=== PATIENT | female | born 2000 | race African-American/Black ===

== ENCOUNTER → 2021-11-17 06:58 | Outpatient (CLI) | payer OTHER, SELFPAY ==
--- NOTE | 2021-11-17 07:01 | DI.US.S_ITS ---
PROCEDURE: US OB >= 14 WEEKS FETUS INDICATIONS: 20 wk ANATOMY SCAN OUTSIDE/PRIOR DATING DATA: Last menstrual period (LMP): 06/07/2021. LMP-based estimated date of delivery (GUILLAUME): 03/14/2022. First dating scan (date and location): 11/17/2021 Estimated date of delivery (GUILLAUME) from first dating scan: 03/25/2022.. TECHNIQUE: Real-time scanning was performed of the fetus, with image documentation and biometric measurements. COMPARISON: None. FINDINGS: General: A single living intrauterine gestation is present. Presentation: Vertex Placenta: Placental position is posterior, without previa. Amniotic fluid index: 12.9 cm, normal range is 5-24 cm. Single deepest vertical pocket is 4.9 cm. heart rate: 149 beats per minute. Maternal cervical canal: 4.1 cm long. Normal lower limit is 2.5 cm. biometrics: Biparietal diameter: 5.1 cm, 21 weeks, 2 days Head circumference: 19.7 cm, 21 weeks, 6 days Abdominal circumference: 16.2 cm, 21 weeks, 2 days Femur length: 3.9 cm, 22 weeks, 4 days Clinically estimated gestational age: Not available Composite gestational age from present scan: 21 weeks, 5 days Estimated weight and percentile: 454 g, 3% Anatomic survey: Neuro: Ventricles are non-dilated at less than 10 mm. Cisterna magna is normal at 3-11 mm. Cerebellum is normal in size and morphology. Nuchal skin fold: Normal at less than 6 mm between 14-21 weeks gestational age. Face: Nose and lips, facial profile are normal. Spine: No evidence for spina bifida. Heart: 4-chambered heart is present, with normal ventricular outflow tracts. Diaphragm: Diaphragm is intact. Stomach: Left-sided stomach is present. Kidneys: No hydronephrosis. Normal is less than 5 mm in 2nd trimester, less than 7 mm in 3rd trimester. Cord: 3-vessel cord has orthotopic insertion. Bladder: Normal in size. Extremities: All 4 extremities identified. IMPRESSION: 1. Single live intrauterine with fetus in vertex presentation. heart rate is 149 beats per minute. Normal amount of amniotic fluid. Estimated weight is at 3%. 2. Normal anatomic survey. We strive to produce accurate, complete, and clear reports of imaging services. To assist us in improving patient care, this report was composed using standard report templates and voice recognition software. Therefore, it may contain abnormal punctuation, insertions and/or omissions. Occasional wrong-word or sound-alike substitutions may occur. Though we review the report and make efforts to correct it, we do recommend that the report be read carefully in proper context to recognize any text inaccuracies. Dictated by: Vijay Patterson M.D. on 11/17/2021 at 8:13 Approved by: Vijay Patterson M.D. on 11/17/2021 at 8:37
== END ==
PROVIDERS: Referring Provider Obstetrics & Gynecology; Visit Provider Obstetrics & Gynecology
DX: Z34.82 Encounter for supervision of other normal pregnancy, second trimester (principal); Z3A.21 21 weeks gestation of pregnancy
CPT/HCPCS: 76811

== ENCOUNTER → 2021-12-17 14:22 | Outpatient (CLI) | payer OTHER, SELFPAY ==
[2021-12-17 16:29] LABS: Hematocrit 30.5 % (36-46); Hemoglobin 10.2 g/dL (12.0-16.0)
[2021-12-17 16:48] LABS: GTT (PREG) 1 Hour PP 50gm Dose 150 mg/dL (76-139)
== END ==
PROVIDERS: Referring Provider Obstetrics & Gynecology; Visit Provider Obstetrics & Gynecology
DX: Z34.82 Encounter for supervision of other normal pregnancy, second trimester (principal)
CPT/HCPCS: 36415; 82950; 85014; 85018

== ENCOUNTER → 2021-12-30 06:56 | Outpatient (CLI) | payer OTHER, SELFPAY ==
[2021-12-30 09:19] LABS: Glucose 1 Hour Gest 218 mg/dL (76-180)
[2021-12-30 09:24] LABS: Glucose Fasting Gestational 89 mg/dL (76-95)
[2021-12-30 10:24] LABS: Glucose Tol Interp,Gestational INTERPRETATION
[2021-12-30 10:46] LABS: Glucose 2 Hour Gest 140 mg/dL (76-155)
[2021-12-30 11:02] LABS: Glucose 3 Hour Gest 64 mg/dL (76-140)
== END ==
PROVIDERS: Referring Provider Obstetrics & Gynecology; Visit Provider Obstetrics & Gynecology
DX: O99.810 Abnormal glucose complicating pregnancy (principal)
CPT/HCPCS: 36415; 82951; 82952

== ENCOUNTER → 2022-01-07 12:51 | Outpatient (CLI) | payer OTHER, SELFPAY ==
--- NOTE | 2022-01-07 13:42 | DIAB.MNT ---
Initial Diabetes Medical Nutrition Therapy Assessment Name: Lynn Grady Date: 01/07/22 Time: 1-130p Dx: Abnormal Glucose in Provider: Brook GUILLAUME: 03/25/22 (reported and ultrasound) 29 weeks Lynn presents today for initial nutrition therapy visit regarding elevated OGTT. Screen was elevated at 150 mg/dL and 1hr OGTT elevated at 218 mg/dL. States her dad is a cook and he has provided some education on carbs vs protein foods. Endorses mostly carb foods for meals/snacks. No PMH of diabetes or glucose intolerance. Reports FH of DM with maternal aunt. Has questions about vegetables frozen, canned vs fresh Diet Recall: -10a: blueberry eggos x2, with 1TBS syrup and butter +/-eggs, +8oz milk 12p: 1c Pasta, white sauce, spinach OR chili ? can + chips x 10, +/- cran juice x 8oz OR PBJ premade sandwich 3-4p: salads or fruit cup 7p: steak, 1/2c potatoes, green beans OR 1c gumbo OR 1c tatertot casserole with green beans and 1/2c mashed potatoes +/- 8oz cran juice Beverages: water x 64oz, milk x 16oz, cran juice x 16oz Anthropometrics: Ht: 66 Wt: 173# last week at OB Weight history: prepre# Physical Activity: hiking <3mi once per week, basketball 1-2 x per month, 16 min yoga 4-7 days per week Medications: PNV +iron Pertinent Labs: 1 hr screen: 150. OGTT: 89, 218, 140, 64L high 1hr and low 3hr may indicate pancreas insufficiency. Past Medical History: (Last Updated 12/16/21 @ 20:38 by Alyson Soler) Acne inversa Chlamydia Herpes Migraines (~2005) Nutrition Rx: Plate Method Nutrition Diagnosis: - Excessive CHO intake r/t nutrition knowledge deficit and juice intake aeb pt report and diet recall - Inadequate protein intake r/t nutrition knowledge deficit aeb diet recall - Physical inactivity r/t knowledge deficit and <30min daily activity aeb pt report Intervention: This participant was very receptive. Provided appropriate educational handouts. Discussed the following topics: Completed intake assessment. Pathophysiology of abnormal blood sugars rationale for OGTT and screen Potential risk factors for blood sugar abnormalities in the future and ways to reduce risk Plate Method, impact of macronutrients on blood sugar, meal timing, pairing macronutrients Recommended servings for carbohydrates at meals and snacks Recommended protein during Differences between vegetables frozen, fresh, canned. Encouraged low sodium options for overall nutrition health. Brainstormed appropriate meal plan based on food preferences Role of physical activity and following guidelines for safety Created SMART goals for patient self-care and success. Goals: Walk 3 x per week 20-30 min Add protein to each meal Avoid juice Follow-up: EDUARD CAGLE follow-up in 2-3 weeks. Lynn was very amenable to recommendations. Denied any questions and would like to follow-up for accountability. Princess Del Angel RDN, CDCES Certified Diabetes Care and [employer] Emergency Dispatcher P: [phone] Thank you for this referral
== END ==
PROVIDERS: Referring Provider Obstetrics & Gynecology; Visit Provider Obstetrics & Gynecology
DX: O26.893 Other specified pregnancy related conditions, third trimester (principal); Z3A.29 29 weeks gestation of pregnancy; R73.9 Hyperglycemia, unspecified
CPT/HCPCS: 97802

== ENCOUNTER 2022-01-28 14:47 | Outpatient (CLI) | payer OTHER, SELFPAY | END 2022-01-28 16:25 | disposition home or self-care (01) | LOC: LABOR 15:04 → OB 02-01 15:13 | PROVIDERS: Referring Provider Obstetrics & Gynecology; Visit Provider Obstetrics & Gynecology | DX: Z34.83 Encounter for supervision of other normal pregnancy, third trimester (principal); Z3A.32 32 weeks gestation of pregnancy | CPT/HCPCS: 59025; G0378; G0379 ==

== ENCOUNTER 2022-02-11 08:58 | Outpatient (CLI) | payer OTHER, SELFPAY ==
--- NOTE | 2022-02-11 09:33 | P.TNLD_ITS ---
Visit Information Visit Information Date of evaluation: 02/11/22 Primary OB Provider: Jannette Doe Reason for Evaluation: Yes non-stress test Comments/Additional reasons for admission: This patient is a 22yo P0 at 35 weeks with a late transfer of care and unclear dating, presenting for NST out of concern for SGA with no symptoms or concerns. Vital Signs Vital Signs: 112/77, HR 82, afebrile [facility] Medical History (Updated 02/17/22 @ 10:29 by Tono Choudhury MD) Acne inversa Chlamydia Herpes Migraines (~2005) Family History (Updated 12/16/21 @ 20:39 by Alyson Soler) Mother No problems noted. Father Sarcoidosis of lung Grandmother No problems noted. Grandfather Family history unknown Grandmother Sarcoidosis of lung Grandfather Hypertension History of heart disease Social History marital status: number of children: 0 household members: spouse lives independently: Yes caregiver/support person: No housing: house pets and animals: No education level: college occupational status: employed current occupational exposures/hazards: No special aly needs: No seatbelt use: always do you feel safe at home: Yes second hand exposure: No alcohol intake: former substance use type: marijuana during the past year weight has: increased > 10 lbs well-balanced diet: daily or most days daily servings fruits/ve-4 caffeine: No Type(s) of exercise: walking, other and normal ROM and activity frequency: does not exercise duration: 30-45 minutes/day Evaluation Evaluation Baseline heart rate: 150 Variability: Moderate (11-25) monitor accelerations: Present Monitor Decelerations: Absent Category of Tracing: Reactive Status: Category l Diagnosis, Plan/Disposition Plan/Disposition Plan: Home with routine precautions. OB Disposition: home
== END 2022-02-11 09:35 | disposition home or self-care (01) ==
LOC: LABOR 09:35 → OB 02-15 07:27
PROVIDERS: Referring Provider Obstetrics & Gynecology; Visit Provider Obstetrics & Gynecology
DX: O36.5930 Maternal care for other known or suspected poor fetal growth, third trimester, not applicable or unspecified (principal); Z3A.34 34 weeks gestation of pregnancy
CPT/HCPCS: 59025; G0378; G0379

== ENCOUNTER → 2022-02-25 17:38 | Outpatient (CLI) | payer OTHER, SELFPAY ==
[2022-02-26 15:18] LABS: Strep Grp B PCR NEG for Grp B Strep
== END ==
PROVIDERS: Visit Provider Obstetrics & Gynecology
DX: Z34.83 Encounter for supervision of other normal pregnancy, third trimester (principal); Z3A.36 36 weeks gestation of pregnancy
CPT/HCPCS: 87653

== ENCOUNTER 2022-03-03 12:35 | Outpatient (CLI) | payer OTHER, SELFPAY ==
--- NOTE | 2022-03-03 13:36 | PM.OBTRLD ---
Visit Information Visit Information Date of evaluation: 03/03/22 Primary OB Provider: Jannette Doe Reason for Evaluation: Yes non-stress test Comments/Additional reasons for admission: Patient a P0 @37+0 presenting for NST due to persistent FHR in 170s-180s in the office. Otherwise feeling well. Vital Signs Vital Signs: 118/80, p 102, afebrile [facility] Medical History (Updated 02/17/22 @ 10:29 by Tono Choudhury MD) Acne inversa Chlamydia Herpes Migraines (~2005) Family History (Updated 12/16/21 @ 20:39 by Alyson Soler) Mother No problems noted. Father Sarcoidosis of lung Grandmother No problems noted. Grandfather Family history unknown Grandmother Sarcoidosis of lung Grandfather Hypertension History of heart disease Social History marital status: number of children: 0 household members: spouse lives independently: Yes caregiver/support person: No housing: house pets and animals: No education level: college occupational status: employed current occupational exposures/hazards: No special aly needs: No seatbelt use: always do you feel safe at home: Yes second hand exposure: No alcohol intake: former substance use type: marijuana during the past year weight has: increased > 10 lbs well-balanced diet: daily or most days daily servings fruits/ve-4 caffeine: No Type(s) of exercise: walking, other and normal ROM and activity frequency: does not exercise duration: 30-45 minutes/day Evaluation Evaluation Baseline heart rate: 150 Variability: Average (6-10) monitor accelerations: Present Monitor Decelerations: Absent Category of Tracing: Reactive Status: Category l Diagnosis, Plan/Disposition Plan/Disposition Plan: home with routine precautions OB Disposition: home
== END 2022-03-03 13:10 | disposition home or self-care (01) ==
LOC: LABOR 13:08 → OB 03-04 08:51
PROVIDERS: Referring Provider Obstetrics & Gynecology; Visit Provider Obstetrics & Gynecology
DX: O36.8330 Maternal care for abnormalities of the fetal heart rate or rhythm, third trimester, not applicable or unspecified (principal); Z3A.37 37 weeks gestation of pregnancy
CPT/HCPCS: 59025; G0378; G0379

== ENCOUNTER 2022-03-20 00:32 | Outpatient (CLI) | payer OTHER, SELFPAY | END 2022-03-20 01:30 | disposition home or self-care (01) | LOC: LABOR 01:34 → OB 03-23 14:27 | PROVIDERS: PCP Obstetrics & Gynecology; Referring Provider Obstetrics & Gynecology; Visit Provider Obstetrics & Gynecology | DX: Z03.71 Encounter for suspected problem with amniotic cavity and membrane ruled out (principal); Z3A.39 39 weeks gestation of pregnancy | CPT/HCPCS: 59025; G0378; G0379 ==

== ENCOUNTER 2022-03-24 07:07 | Outpatient (CLI) | payer OTHER, SELFPAY | END 2022-03-24 07:56 | disposition home or self-care (01) | LOC: OB 03-25 11:35 | PROVIDERS: PCP Obstetrics & Gynecology; Referring Provider Obstetrics & Gynecology; Visit Provider Obstetrics & Gynecology | DX: Z03.71 Encounter for suspected problem with amniotic cavity and membrane ruled out (principal); O36.5930 Maternal care for other known or suspected poor fetal growth, third trimester, not applicable or unspecified; Z3A.39 39 weeks gestation of pregnancy | CPT/HCPCS: 59025; 84112; G0378; G0379 ==

== ENCOUNTER 2022-03-25 13:29 | Outpatient (CLI) | payer OTHER, SELFPAY ==
--- NOTE | 2022-03-26 09:20 | PM.OBTRLD ---
Visit Information Visit Information Date of evaluation: 03/25/22 Primary OB Provider: Damien Doe Reason for Evaluation: Yes rule out labor Comments/Additional reasons for admission: This patient is a 22yo P0 @40+1 presenting for evaluation for labor. Patient has had contractions for several weeks, increased mucus vs LOF, no VB. Good movement, no other symptoms. Vital Signs Vital Signs: 116/77, HR 97 PFSH Medical History Acne inversa Chlamydia Herpes Migraines (~2005) Family History Mother No problems noted. Father Sarcoidosis of lung Grandmother No problems noted. Grandfather Family history unknown Grandmother Sarcoidosis of lung Grandfather Hypertension History of heart disease Social History marital status: number of children: 0 household members: spouse lives independently: Yes caregiver/support person: No housing: house pets and animals: No education level: college occupational status: employed current occupational exposures/hazards: No special aly needs: No seatbelt use: always do you feel safe at home: Yes second hand exposure: No alcohol intake: former substance use type: marijuana during the past year weight has: increased > 10 lbs well-balanced diet: daily or most days daily servings fruits/ve-4 caffeine: No Type(s) of exercise: walking, other and normal ROM and activity frequency: does not exercise duration: 30-45 minutes/day Review of Systems Constitutional Constitutional: Reports system reviewed and no additional complaints, except as documented Evaluation Evaluation Baseline heart rate: 140 Variability: Average (6-10) monitor accelerations: Present Monitor Decelerations: Early and Late (x1) Contraction Frequency (minutes): 7 Category of Tracing: Reactive Status: Category l Cervical dilation (cm): 3 Cervical effacement (%): 90 station: -1 Non-invasive Membranes Rupture Test: negative Diagnosis, Plan/Disposition Plan/Disposition Plan: Patient ambulated x1.5 hours without cervical change, spaced contractions. Discussed theraputic rest vs. discharge, labor precautions. Discharged home in latent labor. OB Disposition: home
== END 2022-03-25 15:31 | disposition home or self-care (01) ==
LOC: LABOR 13:45 → OB 03-28 10:18
PROVIDERS: PCP Obstetrics & Gynecology; Referring Provider Obstetrics & Gynecology; Visit Provider Obstetrics & Gynecology
DX: O47.1 False labor at or after 37 completed weeks of gestation (principal); O48.0 Post-term pregnancy; Z3A.40 40 weeks gestation of pregnancy
CPT/HCPCS: 59025; 84112; G0378; G0379

== ENCOUNTER 2022-03-26 00:56 | Outpatient (CLI) | payer OTHER, SELFPAY ==
[2022-03-26] MEDS: MORPHINE 10 MG/ML INJ IM (02:45)
[2022-03-26] MEDS: hydrOXYzine 50 MG/ML INJ IM (02:46)
--- NOTE | 2022-03-26 09:25 | PM.OBTRLD ---
Visit Information Visit Information Date of evaluation: 03/26/22 Primary OB Provider: Jannette Doe Reason for Evaluation: Yes rule out labor Comments/Additional reasons for admission: Patient is a P0 @40+2 presenting for evaluation for labor, reporting contractions resumed q4 3 hours ago. No LOF or VB, good movement, no other symptoms. Vital Signs Vital Signs: 121/89, HR 90 PFSH Medical History Acne inversa Chlamydia Herpes Migraines (~2005) Family History Mother No problems noted. Father Sarcoidosis of lung Grandmother No problems noted. Grandfather Family history unknown Grandmother Sarcoidosis of lung Grandfather Hypertension History of heart disease Social History marital status: number of children: 0 household members: spouse lives independently: Yes caregiver/support person: No housing: house pets and animals: No education level: college occupational status: employed current occupational exposures/hazards: No special aly needs: No seatbelt use: always do you feel safe at home: Yes second hand exposure: No alcohol intake: former substance use type: marijuana during the past year weight has: increased > 10 lbs well-balanced diet: daily or most days daily servings fruits/ve-4 caffeine: No Type(s) of exercise: walking, other and normal ROM and activity frequency: does not exercise duration: 30-45 minutes/day Evaluation Evaluation Baseline heart rate: 150 Contraction Frequency (minutes): 7 Uterine Contraction Intensity: Moderate Category of Tracing: Reactive Status: Category l Cervical dilation (cm): 3 Cervical effacement (%): 90 station: -1 Diagnosis, Plan/Disposition Plan/Disposition Plan: Home after theraputic rest with morphine and vistaril, labor precautions discussed. OB Disposition: home
== END 2022-03-26 02:56 | disposition home or self-care (01) ==
LOC: OB 03-28 10:21
PROVIDERS: PCP Obstetrics & Gynecology; Referring Provider Obstetrics & Gynecology; Visit Provider Obstetrics & Gynecology
DX: O47.9 False labor, unspecified (principal); O48.0 Post-term pregnancy; Z3A.40 40 weeks gestation of pregnancy
CPT/HCPCS: 59025; 96372; G0378; G0379; J2270; J3410

== ENCOUNTER 2022-03-26 23:39 | Outpatient (CLI) | payer OTHER, SELFPAY ==
[2022-03-27] MEDS: MORPHINE 10 MG/ML INJ IM (00:40)
[2022-03-27] MEDS: hydrOXYzine 50 MG/ML INJ IM (00:41)
--- NOTE | 2022-03-27 03:42 | PM.OBTRLD ---
Visit Information Visit Information Date of evaluation: 03/25/22 Primary OB Provider: Jannette Doe Reason for Evaluation: Yes rule out labor Comments/Additional reasons for admission: This patient is a 22yo P0 @40+3 presenting for evaluation of labor. Contractions continue to be painful. No VB, no LOF, no other symptoms. Vital Signs Vital Signs: 130s-140s/90s, HR 110s PFSH Medical History Acne inversa Chlamydia Herpes Migraines (~2005) Family History Mother No problems noted. Father Sarcoidosis of lung Grandmother No problems noted. Grandfather Family history unknown Grandmother Sarcoidosis of lung Grandfather Hypertension History of heart disease Social History marital status: number of children: 0 household members: spouse lives independently: Yes caregiver/support person: No housing: house pets and animals: No education level: college occupational status: employed current occupational exposures/hazards: No special aly needs: No seatbelt use: always do you feel safe at home: Yes second hand exposure: No alcohol intake: former substance use type: marijuana during the past year weight has: increased > 10 lbs well-balanced diet: daily or most days daily servings fruits/ve-4 caffeine: No Type(s) of exercise: walking, other and normal ROM and activity frequency: does not exercise duration: 30-45 minutes/day Evaluation Evaluation Baseline heart rate: 130 Variability: Average (6-10) monitor accelerations: Present Monitor Decelerations: Absent Status: Category l Cervical dilation (cm): 4 Cervical effacement (%): 90 station: -1 Diagnosis, Plan/Disposition Plan/Disposition Plan: Patient has not made significant cervical change per nursing exams and evaluation, but on review after discharge is quite hypertensive. To be called in AM to return for repeat BPs and PIH labs. OB Disposition: home
== END 2022-03-27 01:18 | disposition home or self-care (01) ==
LOC: LABOR 03-27 00:25 → OB 03-28 10:21
PROVIDERS: PCP Obstetrics & Gynecology; Referring Provider Obstetrics & Gynecology; Visit Provider Obstetrics & Gynecology
DX: O47.1 False labor at or after 37 completed weeks of gestation (principal); O48.0 Post-term pregnancy; Z3A.40 40 weeks gestation of pregnancy
CPT/HCPCS: 59025; 59050; 96372; G0378; G0379; J2270; J3410

== ENCOUNTER 2022-03-27 05:09 | Inpatient (IN) | payer OTHER, SELFPAY ==
[2022-03-27 06:46] LABS: Basophils Absolute Auto 100 /uL (0-100); Basophils Percent Auto 0.4 % (0-2); Eosinophils Absolute Auto 0 /uL (0-450); Hemoglobin 10.9 g/dL (12.0-16.0); Lymphocytes Absolute Auto 1700 /uL (1100-4500); Lymphocytes Percent Auto 9.1 % (25-40); Mean Corpuscular HGB Conc 33.1 % (30-36); Mean Corpuscular Hemoglobin 27.6 PG (26-34); Mean Corpuscular Volume 83.3 fL (80-100); Monocytes Absolute Auto 1000 /uL (0-900); Monocytes Percent Auto 5.4 % (3-14); Neutrophils Absolute Auto 16100 /uL (1500-7000); Neutrophils Percent Auto 85.1 % (50-75); Red Blood Cell Count 3.96 X10^6/uL (4.0-5.2); Red Cell Distribution Width 15.4 % (11.6-14.8); White Blood Cell Count 18.9 X10^3/uL (4.5-11.0)
[2022-03-27 06:47] LABS: BUN Creatinine Ratio 17.5 (6-22); Blood Urea Nitrogen 11 mg/dL (7-17); Estimated Glomerular Filt Rate > 60 mL/min (>60); Uric Acid 5.6 mg/dL (2.5-6.2)
[2022-03-27 06:48] LABS: Add Manual Diff / Slide Review SLIDE REVIEW
--- NOTE | 2022-03-27 06:55 | P.HPOB_ITS ---
OB HPI Date/Time Date of admission: 03/27/22 Date Patient Seen: 03/27/22 Time Patient Seen: 05:00 History of Present Condition Chief complaint: obs GUILLAUME Calculator Estimated Delivery Date Method Current WG Current Estimate 03/24/22 Ultrasound #1 40w 3d Other Estimates 03/14/22 LMP (Uncertain) 41w 6d 03/25/22 Ultrasound #2 40w 2d Estimated Gestational Age (weeks): 40 : 2 Para: 0 Narrative: This patient is a 22yo @40+3 presenting for the 4th time in 36 hours for a labor evaluation. The patient has made slight change to 4cm, and reports no LOF or VB. Reports good movement, no other symptoms or concerns. was complicated by late transfer of care with incomplete records, and initial concern for IUGR was resolved with accurate early US-based GUILLAUME. History of HSV on Valtrex, no other obstetrical complications or relevant medical, surgical, or family history. care: good care Dating criteria OB: LMP confirmed by 2nd trimester US Ultrasounds: normal mid trimester US Obstetrical complications: none Medical complications OB: none Narrative: Prior records include labs and confirmed GUILLAUME, but are incomplete. External History : 2 Para: 0 Estimated Date of Delivery: 03/24/22 Indications Indication for induction OB: maternal discomfort Preadmission Labs Last OB Lab Results: Blood Type B Positive 03/27/22 05:54 03/27/22 Antibody Screen Negative 03/27/22 05:54 03/27/22 Hematocrit 33.0 % (36-46) L 03/27/22 05:54 03/27/22 Hemoglobin 10.9 g/dL (12.0-16.0) L 03/27/22 05:54 03/27/22 Glucose 1 Hour 150 mg/dL (76-139) H 12/17/21 15:29 12/17/21 Group B Streptococcus (PCR) Neg for grp b strep 02/25/22 17:38 02/25/22 Glucose Tolerance Testing: Fasting (89), 1 hr (218), 2 hr (140) and 3 hr (64) -: Chlamydia screen: negative, Gonorrhea screen: negative and Urine: negative External Labs -: Urine: negative Prior (ies) Past Pregnancies Del. Date GA/Weeks Labor Lgth Wt Sex Route Outcome Anesthesia Place Delv Breastfeed Preg Comp Name 10/23/16 10 elective elective Delivery Date: 10/23/16 Last Updated by: Cyndy Barillas R.N. Medication termination, no complications. Evaluation Evaluation Baseline heart rate: 140 Variability: Moderate (11-25) monitor accelerations: Present Monitor Decelerations: Early Contraction Frequency (minutes): 4 Category of Tracing: Reactive Status: Category l Dilation (cm): 4 Effacement (%): 90 Dilation: 3-4 cm Effacement: >/=80% station: -1 Position of cervix: mid Consistency: medium Jensen score: 9 [facility] Medical History Acne inversa Chlamydia Herpes Migraines (~2005) Family History Mother No problems noted. Father Sarcoidosis of lung Grandmother No problems noted. Grandfather Family history unknown Grandmother Sarcoidosis of lung Grandfather Hypertension History of heart disease Social History marital status: number of children: 0 household members: spouse lives independently: Yes caregiver/support person: No housing: house pets and animals: No education level: college occupational status: employed current occupational exposures/hazards: No special aly needs: No seatbelt use: always do you feel safe at home: Yes Smoking Status: Never smoker second hand exposure: No alcohol intake: former substance use type: marijuana during the past year weight has: increased > 10 lbs well-balanced diet: daily or most days daily servings fruits/ve-4 caffeine: No Type(s) of exercise: walking, other and normal ROM and activity frequency: does not exercise duration: 30-45 minutes/day Meds Home Medications and Allergies Home Medications Medication Instructions Recorded Confirmed Type prenat.vits,jan,vaf-aict-lxftv 1 tab PO DAILY 11/17/21 03/27/22 History valacyclovir 500 mg tablet 500 mg PO DAILY #30 tab 02/25/22 03/27/22 Rx (Valtrex) Allergies Allergy/AdvReac Type Severity Reaction Status Date / Time Penicillins Allergy Intermediate Difficulty Verified 03/22/22 11:12 Breathing Review of Systems Constitutional Constitutional: Reports system reviewed and no additional complaints, except as documented Cardiovascular Cardiovascular: Reports system reviewed and no additional complaints, except as documented Respiratory Respiratory: Reports system reviewed and no additional complaints, except as documented Gastrointestinal Gastrointestinal: Reports system reviewed and no additional complaints, except as documented Genitourinary Genitourinary: Reports system reviewed and no additional complaints, except as documented Musculoskeletal Musculoskeletal: Reports system reviewed and no additional complaints, except as documented Neurologic Neurologic: Reports system reviewed and no additional complaints, except as documented Objective Labs Result Diagrams: 03/27/22 05:54 03/27/22 05:54 Labs: Laboratory Results - last 24 hr 03/27/22 05:54 WBC 18.9 H RBC 3.96 L Hgb 10.9 L Hct 33.0 L MCV 83.3 MCH 27.6 MCHC 33.1 RDW 15.4 H Assessment and Plan Assessment and Plan Assessment and Plan narrative: This patient is admitted in early labor. We discussed epidural, AROM, and expectant management with augmentation with pitocin if necessary. EFW 7#4. Anticipate - cEFM, toco - GBS negative - Epidural then AROM to augment early labor in the setting of maternal discomfort - Discussed possible pitocin per protocol
[2022-03-27 06:58] LABS: Aspartate Aminotransferase 36 IU/L (14-36)
[2022-03-27] MEDS: LACTATED RINGERS 1,000 ML 100 ML IV ×2 (07:00→14:52)
[2022-03-27] MEDS: fentaNYL 100 MCG/2 ML INJ (07:45)
[2022-03-27] MEDS: FENT 2MCG/ML BUPIV 0.125% EPI 200 MCG/100 ML PLAST..BAG 12 MCG EPIDURAL ×2 (07:56→15:09)
[2022-03-27 07:58] LABS: COVID19 -Nasal RAPID Negative (Negative)
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
[2022-03-27 08:13] LABS: Platelet Estimate Adequate on smear
[2022-03-27 08:14] LABS: RBC Morphology Normal Morphology
--- NOTE | 2022-03-27 11:57 | PM.OBPNLAB ---
Date/Time Date Patient Seen: 03/27/22 Time Patient Seen: 12:00 Pain Control Pain control: epidural Pelvic Exam Dilation (cm): 6 Effacement (%): 100 station: 0 Amniotic membrane status: Ruptured (attempted AROM for light mec) Contractions Contractions on admission: regular Contraction frequency (min): 3 Status status: Category l Heart Rate Baseline: 145 Monitor Accelerations: Present Monitor Decelerations: Absent Monitor Variability: Moderate Assessment and Plan Assessment: active labor Plan: continuous present management Comments: Patient making spontaneous progress after epidural. Discussed that pressure is normal and cannot be entirely removed with epidural. AROM attempted, success unclear and will monitor for leakage of fluid.
--- NOTE | 2022-03-27 14:45 | PM.OBPNLAB ---
Date/Time Date Patient Seen: 03/27/22 Time Patient Seen: 14:45 Pain Control Pain control: epidural Pelvic Exam Dilation (cm): 8 Effacement (%): 100 station: 0 Amniotic membrane status: Leaking (light mec) Contractions Contraction frequency (min): 5 Contraction pattern: Regular Status status: Category l Heart Rate Baseline: 150 Monitor Accelerations: Present Monitor Decelerations: Absent Monitor Variability: Moderate Assessment and Plan Assessment: active labor Plan: continuous present management Comments: Patient making slow but present change. Discussed low dose pitocin to bring contractions together, peanut ball positioning and nap.
--- NOTE | 2022-03-27 16:15 | PM.OBPNLAB ---
Date/Time Date Patient Seen: 03/27/22 Time Patient Seen: 16:15 Pain Control Pain control: epidural Comments: left hip window Pelvic Exam Dilation (cm): 9 Effacement (%): 100 station: 0 Amniotic membrane status: Leaking (light mec) Contractions Contraction frequency (min): 5 Contraction pattern: Regular Status status: Category l Heart Rate Baseline: 145 Monitor Accelerations: Present Monitor Decelerations: Early Monitor Variability: Moderate Assessment and Plan Assessment: active labor Plan: continuous present management Comments: Patient for repositioning. Anticipate . Elevated BPs and pulse in setting of significant anxiety about feeling pressure with contractions, repeating PIH labs and coaching provided. No PIH symptoms endorsed.
[2022-03-27 16:27] LABS: Creatinine Urine Random 100.8 mg/dL; Protein (Total) Urine Random 24 mg/dL (0-12); Protein Creatinine Ratio Urine 0.23 GRAM/24H
[2022-03-27 16:36] LABS: Add Manual Diff / Slide Review NO; Basophils Absolute Auto 100 /uL (0-100); Basophils Percent Auto 0.5 % (0-2); Eosinophils Absolute Auto 0 /uL (0-450); Hematocrit 31.7 % (36-46); Hemoglobin 10.5 g/dL (12.0-16.0); Lymphocytes Absolute Auto 1500 /uL (1100-4500); Lymphocytes Percent Auto 8.5 % (25-40); Mean Corpuscular HGB Conc 33.2 % (30-36); Mean Corpuscular Hemoglobin 27.4 PG (26-34); Mean Corpuscular Volume 82.3 fL (80-100); Monocytes Absolute Auto 1200 /uL (0-900); Monocytes Percent Auto 6.7 % (3-14); Neutrophils Absolute Auto 14500 /uL (1500-7000); Neutrophils Percent Auto 84.3 % (50-75); Platelet Count 336 X10^3/uL (150-400); Red Blood Cell Count 3.85 X10^6/uL (4.0-5.2); Red Cell Distribution Width 15.1 % (11.6-14.8); White Blood Cell Count 17.2 X10^3/uL (4.5-11.0)
[2022-03-27 16:47] LABS: Alanine Aminotransferase 14 IU/L (<35); Albumin 3.7 g/dL (3.5-5.0); Alkaline Phosphatase 204 U/L (38-126); Aspartate Aminotransferase 24 IU/L (14-36); Bilirubin Total 0.9 mg/dL (0.2-1.3); Blood Urea Nitrogen 9 mg/dL (7-17); Calcium 8.8 mg/dL (8.4-10.2); Carbon Dioxide 24 mmol/L (22-32); Chloride 104 mmol/L (98-107); Estimated Glomerular Filt Rate > 60 mL/min (>60); Globulin 3.6 g/dL (1.7-4.1); Glucose 93 mg/dL (70-100); HEMOLYSIS < 15 (0-50); Potassium 3.9 mmol/L (3.4-5.1); Sodium 133 mmol/L (137-145); Total Protein 7.3 g/dL (6.3-8.2)
[2022-03-27] MEDS: OXYTOCIN PREMIX 30 UNIT/500 ML PLAST..BAG IV (17:00)
--- NOTE | 2022-03-27 18:44 | PM.OBPNLAB ---
Date/Time Date Patient Seen: 03/27/22 Time Patient Seen: 18:44 Pain Control Pain control: epidural Comments: Patient feeling pressure and having severe anxiety around this sensation. Pelvic Exam Dilation (cm): 10 Effacement (%): 100 station: +1 Amniotic membrane status: Leaking (light mec) Contractions Pitocin rate (mU/min): 2 Contraction frequency (min): 3 Contraction pattern: Regular Status status: Category l Heart Rate Baseline: 140 Monitor Accelerations: Absent Monitor Decelerations: Early Monitor Variability: Moderate Assessment and Plan Assessment: active labor Plan: continuous present management Comments: Revisited with patient and spouse that pressure is normal, discussed that we have requested epidural bolus from Dr. Burr. patient hypertensive but all muscles in arms clenched due to anxiety, no PIH symptoms and normal PIH labs. Encouraged to slow breathing.
[2022-03-27] MEDS: miSOPROStoL 200 MCG TABLET 800 MCG PR (21:11)
--- NOTE | 2022-03-27 21:24 | P.PCNOB_ITS ---
Labor & Delivery Delivery date: 03/27/22 Intrapartal Events: Extended Tachycardia, Acceleration and Deceleration Cervical ripening method: none Induction method: AROM Delivery augmentation: pitocin Delivery monitor: external FHT and external uterine Route of delivery: L&D Laceration Description: Perineal - 2nd Degree Delivery repair: vicryl Estimated blood loss (mL): 300 Anesthesia Type: Epidural Narrative: This patient presented in early labor. She was augmented with AROM for light mec, then pitocin for a protracted active phase. After a 1.5 hour second stage, she was delivered of a healthy baby girl, apgars 8+9, weight 6#9. There was no nuchal cord and the shoulders delivered with ease. Thick meconium was noted in the amniotic fluid at the time of delivery. A small second degree laceration was repaired with 3-0 vicryl in the usual fashion. The placenta delivered spontaneously and intact with a three vessel cord. Due to uterine atony after delivery, the patient was administered 800mcg rectal cytotec. There were no other intrapartum or immediate complications. [place] Baby 1: gender: Female Presentation: vertex Position: Left Occiput Anterior Placenta delivery description: Spontaneous Cord Vessel Description: 3 Vessels score (1 min): 8 score (5 min): 9 weight: 6 lb 9 oz Plan for aftercare: Routine care
[2022-03-27] MEDS: IBUPROFEN 600 MG TABLET PO (23:17)
[2022-03-27] MEDS: ACETAMINOPHEN 325 MG TABLET 650 MG PO (23:18)
[2022-03-28] MEDS: LANOLIN OINT 7 GM 1 APPLIC TOP (04:09)
[2022-03-28] MEDS: IBUPROFEN 600 MG TABLET PO ×2 (04:10→11:26)
[2022-03-28] MEDS: OXYCODONE IR 5 MG TABLET PO ×2 (04:11→16:00)
[2022-03-28 08:43] LABS: Hematocrit 28.3 % (36-46); Hemoglobin 9.3 g/dL (12.0-16.0)
[2022-03-28] MEDS: ACETAMINOPHEN 325 MG TABLET 650 MG PO (11:27)
[2022-03-28] MEDS: valACYclovir 500 MG TABLET PO (11:30)
--- NOTE | 2022-03-28 12:10 | P.DS_ITS ---
Discharge Providers Provider Date of admission: 03/27/22 05:09 Discharge Date: 03/28/22 Primary care physician: Jannette Doe MD Consults: 03/28/22 21:23 Consult to Dependency Program Director Routine Comment: Discharge provider: Jannette Doe MD Summary Hospital Course Date Patient Seen: 03/28/22 Time Patient Seen: 10:30 Diagnoses: labor Hospital Course: This patient was admitted in early labor at 40 weeks gestation. Due to maternal discomfort, she was given an epidural and augmented with AROM and pitocin. She progressed to fully dilated and was delivered of a healthy baby girl after a 1.5 hour second stage. A small 2nd degree perineal laceration was repaired in the usual fashion. Her course was uncomplicated, and she was discharged on PPD#1 with routine precautions. Peripartum Data Infant Delivery Method: Natural Vaginal Laceration Description: Perineal - 2nd Degree Procedures: vaginal delivery complications: none 1: Gender: Female Disposition of : home Status at Discharge Cognitive/behavioral status at discharge: oriented Functional status at discharge: independent ambulation Overall status at discharge: patient is progressing back to baseline Time Spent with Patient Time attestation: Total time spent providing and/or coordinating discharge services: Objective Labs Result Diagrams: 03/28/22 08:16 03/27/22 16:29 Labs: Laboratory Results - last 24 hr 03/27/22 03/27/22 03/27/22 15:45 16:29 16:29 WBC 17.2 H RBC 3.85 L Hgb 10.5 L Hct 31.7 L MCV 82.3 MCH 27.4 MCHC 33.2 RDW 15.1 H Plt Count 336 Neut % (Auto) 84.3 H Lymph % (Auto) 8.5 L [place] % (Auto) 6.7 Eos % (Auto) 0.0 L Baso % (Auto) 0.5 Neut # (Auto) 09380 H Lymph # (Auto) 1500 [place] # (Auto) 1200 H Eos # (Auto) 0 Baso # (Auto) 100 Sodium 133 L Potassium 3.9 Chloride 104 Carbon Dioxide 24 BUN 9 Creatinine 0.75 Estimated GFR > 60 BUN/Creatinine Ratio 12.0 Glucose 93 Calcium 8.8 Total Bilirubin 0.9 AST 24 ALT 14 Alkaline Phosphatase 204 H Total Protein 7.3 Albumin 3.7 Globulin 3.6 Albumin/Globulin Ratio 1.0 U Random Total Protein 24 H Urine Creatinine 100.8 Protein/Creatinin Ratio 0.23 03/28/22 08:16 WBC RBC Hgb 9.3 L Hct 28.3 L MCV MCH MCHC RDW Plt Count Neut % (Auto) Lymph % (Auto) [place] % (Auto) Eos % (Auto) Baso % (Auto) Neut # (Auto) Lymph # (Auto) [place] # (Auto) Eos # (Auto) Baso # (Auto) Sodium Potassium Chloride Carbon Dioxide BUN Creatinine Estimated GFR BUN/Creatinine Ratio Glucose Calcium Total Bilirubin AST ALT Alkaline Phosphatase Total Protein Albumin Globulin Albumin/Globulin Ratio U Random Total Protein Urine Creatinine Protein/Creatinin Ratio Exam Vital Signs (past 8 hours): 121/83, HR 110 Narrative Exam Narrative: Resting in bed. Patient reports ambulating, mild lochia, voiding, passing flatus, tolerateing PO, no PIH symptoms. Const General: cooperative, healthy appearing, comfortable and well groomed Resp Effort & Inspection: normal respiratory effort Auscultation: clear to auscultation bilaterally Cardio Rate: regular rate Rhythm: regular rhythm GI Palpation: soft and No tender Other: fundus firm, well below u Discharge Plan Discharge Plan Patient Disposition: Home Discharge orders & Medications Prescriptions: Continued valacyclovir [Valtrex] 500 mg tablet 500 mg PO DAILY Qty: 30 2RF Rx Instructions: Take once daily until 6 weeks . prenat.vits,jan,xup-uwob-wuobl Tablet 1 tab PO DAILY 0RF Follow up/Referrals: Jannette Doe MD [Primary Care Provider] - 6 Weeks ( check) Diet/Activity/Treatments Diet: Regular Activity: Nothing in the vagina for 6 weeks. Avoid lifting more than 10 pounds for 6 weeks. If you have increasing bleeding, fevers, chills, nausea, pain, headaches, or any other symptoms or concerns, call or come to the emergency room. Skin/Wound/Dressing Care Report to your healthcare provider any signs of infection, such as:: chills, fever, night sweats, increased pain, unusual drainage and unusual redness Visit Report/Discharge Packet Instructions: Depression, DI for Labor and Delivery, Vaginal Stand Alone Forms: Discharge: Care Discharge Data Primary Care Provider: Jannette Doe
[2022-03-28 14:23] VITALS: BP 121/83; PULSE 110; RESP 16; TEMP 36.3
== END 2022-03-28 18:30 | disposition home or self-care (01) | DRG 806 ==
PROVIDERS: Admitting Provider Obstetrics & Gynecology; PCP Obstetrics & Gynecology; Referring Provider Obstetrics & Gynecology; Visit Provider Obstetrics & Gynecology
DX: O48.0 Post-term pregnancy (principal); O47.1 False labor at or after 37 completed weeks of gestation; Z37.0 Single live birth; O77.0 Labor and delivery complicated by meconium in amniotic fluid; Z3A.40 40 weeks gestation of pregnancy; O76 Abnormality in fetal heart rate and rhythm complicating labor and delivery; O70.1 Second degree perineal laceration during delivery; Z20.822 Contact with and (suspected) exposure to COVID-19
CPT/HCPCS: 01967; 36415; 59025; 59050; 59410; 80053; 82570; 84156; 84450; 84550; 85014; 85018; 85025; 86850; 86900; 86901; 87635; 96372; C9803; G0379; J2270; J2590; J3010; J3410; S0191

== ENCOUNTER → 2023-04-11 10:44 | Outpatient (CLI) | payer OTHER, SELFPAY ==
[2023-04-11 15:46] LABS: Urine N gonorrhoeae NOT DETECTED
[2023-04-11 15:52] LABS: Urine Chlamydia NOT DETECTED
== END ==
PROVIDERS: Visit Provider Obstetrics & Gynecology
DX: Z11.3 Encounter for screening for infections with a predominantly sexual mode of transmission (principal); Z34.81 Encounter for supervision of other normal pregnancy, first trimester; Z3A.10 10 weeks gestation of pregnancy
CPT/HCPCS: 87491; 87591

== ENCOUNTER → 2023-06-05 11:07 | Outpatient (CLI) | payer OTHER, SELFPAY ==
[2023-06-05 12:04] LABS: Add Manual Diff / Slide Review NO; Basophils Absolute Auto 0 /uL (0-100); Basophils Percent Auto 0.5 % (0-2); Eosinophils Absolute Auto 0 /uL (0-450); Eosinophils Percent Auto 0.5 % (2-4); Hematocrit 35.1 % (36-46); Hemoglobin 11.8 g/dL (12.0-16.0); Lymphocytes Absolute Auto 1800 /uL (1100-4500); Lymphocytes Percent Auto 23.7 % (25-40); Mean Corpuscular HGB Conc 33.8 % (30-36); Mean Corpuscular Hemoglobin 27.8 PG (26-34); Mean Corpuscular Volume 82.4 fL (80-100); Monocytes Absolute Auto 200 /uL (0-900); Monocytes Percent Auto 2.9 % (3-14); Neutrophils Absolute Auto 5600 /uL (1500-7000); Neutrophils Percent Auto 72.4 % (50-75); Platelet Count 357 X10^3/uL (150-400); Red Blood Cell Count 4.26 X10^6/uL (4.0-5.2); Red Cell Distribution Width 13.5 % (11.6-14.8); White Blood Cell Count 7.7 X10^3/uL (4.5-11.0)
[2023-06-05 16:48] LABS: Hepatitis B Surface Antigen NEGATIVE s/c (NEGATIVE)
[2023-06-05 17:02] LABS: HIV 1 & 2 Ab/Ag 4th Gen Combo NEGATIVE (NEGATIVE); Hep C Virus Ab w/Reflex Quant NEGATIVE s/c (NEGATIVE)
[2023-06-06 08:54] LABS: RPR Screen Non Reactive (Non Reactive)
[2023-06-06 13:10] LABS: Varicella IgG Antibody 1033 index (Immune >165)
[2023-06-07 22:38] LABS: AFP, Serum 100.5 ng/mL (.); Estriol, Free 2.06 ng/mL (.); Inhibin A, Dimeric 101.96 pg/mL (.); Inhibin A, MoM 0.69 (.); Maternal Ethnicity Black (.); Maternal Weight 161 lbs (.); Number of Fetuses No (.); OSBR Risk 1 IN 1294 (.); Results Report (.); Test Results *Screen Negative* (.); hCG, MoM 0.82 (.); hCG, Serum 23040 mIU/mL (.)
[2023-06-08 07:29] LABS: AFP PDF SCANNED
== END ==
PROVIDERS: Specialist; Referring Provider Obstetrics & Gynecology; Visit Provider Obstetrics & Gynecology
DX: Z34.82 Encounter for supervision of other normal pregnancy, second trimester (principal); Z36.0 Encounter for antenatal screening for chromosomal anomalies; Z3A.18 18 weeks gestation of pregnancy; Z34.81 Encounter for supervision of other normal pregnancy, first trimester
CPT/HCPCS: 36415; 80055; 82105; 82677; 84702; 86336; 86787; 86803; 86850; 86900; 86901; 87389

== ENCOUNTER → 2023-06-20 10:21 | Outpatient (CLI) | payer OTHER, SELFPAY ==
--- NOTE | 2023-06-20 10:23 | DI.US.S_ITS ---
PROCEDURE: US OB >= 14 WEEKS FETUS INDICATIONS: ANATOMY OUTSIDE/PRIOR DATING DATA: Last menstrual period (LMP): 01/29/2023. LMP-based estimated date of delivery (GUILLAUME): 11/05/2023. First dating scan (date and location): 06/20/2023. Estimated date of delivery (GUILLAUME) from first dating scan: 11/03/2023. The calculations are made using the clinical GUILLAUME of 11/03/2023. TECHNIQUE: Real-time scanning was performed of the fetus, with image documentation and biometric measurements. COMPARISON: None FINDINGS: General: A single living intrauterine gestation is present. Presentation: Breech. Placenta: Placental position is anterior , without previa. Amniotic fluid index: 13.4 cm, normal range is 5-24 cm. Single deepest vertical pocket is 5.6 cm. heart rate: 149 beats per minute. Maternal cervical canal: 3.1 cm long. Normal lower limit is 2.5 cm. biometrics: Biparietal diameter: 4.9 cm 20 weeks 6 days Head circumference: 18.2 cm 20 weeks 4 days Abdominal circumference: 15.5 cm 20 weeks 5 days Femur length: 3.3 cm 20 weeks 1 day Clinically estimated gestational age: 20 weeks 2 days Composite gestational age from present scan: 20 weeks 4 days Estimated weight and percentile: 356 g 56th percentile Anatomic survey: Neuro: Ventricles are non-dilated at less than 10 mm. Cisterna magna is normal at 3-11 mm. Cerebellum is normal in size and morphology. Nuchal skin fold: Normal at less than 6 mm between 14-21 weeks gestational age. Face: Nose and lips, facial profile are normal. Spine: No evidence for spina bifida. Heart: 4-chambered heart is present, with normal ventricular outflow tracts. Diaphragm: Diaphragm is intact. Stomach: Left-sided stomach is present. Kidneys: No hydronephrosis. Normal is less than 5 mm in 2nd trimester, less than 7 mm in 3rd trimester. Cord: 3-vessel cord has orthotopic insertion. Bladder: Normal in size. Extremities: All 4 extremities identified. IMPRESSION: Single live intrauterine with ultrasound gestational age today of 20 weeks 4 days. Anatomy is within normal limits. We strive to produce accurate, complete, and clear reports of imaging services. To assist us in improving patient care, this report was composed using standard report templates and voice recognition software. Therefore, it may contain abnormal punctuation, insertions and/or omissions. Occasional wrong-word or sound-alike substitutions may occur. Though we review the report and make efforts to correct it, we do recommend that the report be read carefully in proper context to recognize any text inaccuracies. Dictated by: Denisse Cleaning M.D. on 06/20/2023 at 14:33 Approved by: Denisse Cleaning M.D. on 06/20/2023 at 14:35
== END ==
PROVIDERS: Referring Provider Specialist; Visit Provider Specialist
DX: Z34.82 Encounter for supervision of other normal pregnancy, second trimester (principal); Z3A.20 20 weeks gestation of pregnancy
CPT/HCPCS: 76811

== ENCOUNTER → 2023-08-10 11:45 | Outpatient (CLI) | payer OTHER, SELFPAY ==
[2023-08-10 14:50] LABS: Hematocrit 27.8 % (36-46); Hemoglobin 9.4 g/dL (12.0-16.0)
[2023-08-10 15:26] LABS: GTT (PREG) 1 Hour PP 50gm Dose 147 mg/dL (76-139)
== END ==
PROVIDERS: Referring Provider Student in an Organized Health Care Education/Training Program; Visit Provider Student in an Organized Health Care Education/Training Program
DX: Z34.82 Encounter for supervision of other normal pregnancy, second trimester (principal); Z3A.26 26 weeks gestation of pregnancy; Z34.81 Encounter for supervision of other normal pregnancy, first trimester
CPT/HCPCS: 36415; 82950; 85014; 85018; 87086

== ENCOUNTER → 2023-08-28 09:53 | Outpatient (CLI) | payer OTHER, SELFPAY ==
[2023-08-28 10:40] LABS: Glucose Fasting Gestational 93 mg/dL (76-95)
[2023-08-28 11:47] LABS: Glucose 1 Hour Gest 153 mg/dL (76-180)
[2023-08-28 13:14] LABS: Glucose Tol Interp,Gestational INTERPRETATION
[2023-08-28 13:42] LABS: Glucose 2 Hour Gest 144 mg/dL (76-155)
[2023-08-28 15:32] LABS: Glucose 3 Hour Gest 66 mg/dL (76-140)
== END ==
PROVIDERS: Referring Provider Student in an Organized Health Care Education/Training Program; Visit Provider Student in an Organized Health Care Education/Training Program
DX: O99.810 Abnormal glucose complicating pregnancy (principal)
CPT/HCPCS: 36415; 82951; 82952

== ENCOUNTER 2023-10-05 11:21 | Observation (INO) | payer OTHER, SELFPAY ==
[2023-10-05 12:40] LABS: Add Manual Diff / Slide Review NO; Basophils Absolute Auto 0 /uL (0-100); Basophils Percent Auto 0.3 % (0-2); Eosinophils Absolute Auto 0 /uL (0-450); Eosinophils Percent Auto 0.5 % (2-4); Hemoglobin 9.5 g/dL (12.0-16.0); Lymphocytes Absolute Auto 1700 /uL (1100-4500); Lymphocytes Percent Auto 16.7 % (25-40); Mean Corpuscular HGB Conc 34.1 % (30-36); Mean Corpuscular Hemoglobin 26.9 PG (26-34); Monocytes Absolute Auto 400 /uL (0-900); Monocytes Percent Auto 4.3 % (3-14); Neutrophils Absolute Auto 8000 /uL (1500-7000); Neutrophils Percent Auto 78.2 % (50-75); Platelet Count 359 X10^3/uL (150-400); Red Blood Cell Count 3.54 X10^6/uL (4.0-5.2); Red Cell Distribution Width 14.1 % (11.6-14.8); White Blood Cell Count 10.3 X10^3/uL (4.5-11.0)
--- NOTE | 2023-10-05 13:13 | PM.OBTRLD ---
Visit Information Visit Information Date of evaluation: 10/05/23 Primary OB Provider: Kerri Mariscal On-call OB Provider: Samira oWng Reason for Evaluation: Yes non-stress test Comments/Additional reasons for admission: 23yo at 35.4w presenting with partner following a fall getting into the pool for water aerobics. She reports walking down steps into the pool and falling into the pool onto her left side. Denies any pain, although her ankle is sore. She is ambulating and ankle is mobile. She has been having occasional mild contractions. Contractions noted on monitor now but she does not feel them. Denies any bleeding or leaking fluid. Currently comfortable. Vital Signs Vital Signs: 117/70BP 36.2T P105 PFS Medical History (Updated 10/05/23 @ 17:07 by Samira Wong DO) Penicillin allergy Vaginal delivery Chlamydia Acne inversa Migraines (~2005) Surgical History (Updated 03/22/23 @ 13:12 by Anali Cast RN) No pertinent past surgical history Family History Mother No problems noted. Father Sarcoidosis of lung Grandmother No problems noted. Grandfather Family history unknown Grandmother Sarcoidosis of lung Grandfather Hypertension History of heart disease Social History marital status: number of children: 1 household members: spouse and children lives independently: Yes caregiver/support person: Yes housing: [facility] pets and animals: No education level: college (Associate's degree) occupational status: employed current occupational exposures/hazards: No special aly needs: No travel history: recent (domestic only) seatbelt use: always water heater temp set < 120 deg: Yes working smoke detector in home: Yes fire extinguisher in home: Yes carbon monox detector in home: Yes firearms in home: No do you feel safe at home: Yes Smoking Status: Never smoker second hand exposure: No alcohol intake: former (Not while /, not much otherwise) substance use type: marijuana (not while /) during the past year weight has: other (daughter less than 1 year old, currently ~10 lb over pre-baby wt) well-balanced diet: daily or most days daily servings fruits/ve-1 caffeine: No Type(s) of exercise: none frequency: does not exercise duration: 30-45 minutes/day Review of Systems Review of Systems ROS: Yes All systems reviewed with the patient and are negative except as otherwise documented Exam Const General: cooperative, healthy appearing and comfortable [facility] Head: normocephalic Eyes General: appearance normal, both eyes and all related structures Neck Neck: normal visual inspection Resp Effort & Inspection: normal respiratory effort Cardio Rate: regular rate GI Inspection: normal to inspection Palpation: soft (nontender) Back/Spine/Pelvis Back: normal to inspection Skin General: no rashes or lesions noted Neuro General: patient alert, patient awake and patient oriented x3 Extrem General: normal to inspection and full ROM Psych Appearance: grossly normal Objective Imaging US - abdomen: Radiologist's impression: Date of Service: 10/05/23 Loc: LABOR [id number] Accession Number: [id number] Procedure: US OB limited Ordering Provider: Samira Wong D.O. PROCEDURE: US OB LIMITED INDICATIONS: Rule out abruption following fall OUTSIDE/PRIOR DATING DATA: Last menstrual period (LMP): 01/29/23. LMP-based estimated date of delivery (GUILLAUME): 11/05/2023. First dating scan (date and location): 06/20/2023. Estimated date of delivery (GUILLAUME) from first dating scan: 11/03/2019. TECHNIQUE: Real-time scanning was performed of the fetus, with image documentation and biometric measurements. Biophysical profile was also obtained. COMPARISON: [facility], OB >= 14 WEEKS FETUS, 06/20/2023, 10:34. FINDINGS: General: A single living intrauterine gestation is present. Presentation: Vertex. Placenta: Placental position is anterior and appears normal. Lower placental margin and its relation with cervix are not visualized on this exam. Amniotic fluid index: 15.9 cm, normal range is 5-24 cm. Single deepest vertical pocket is 4.9cm. heart rate: 139 beats per minute. Maternal cervical canal: Not visualized biometrics: Not performed Clinically estimated gestational age: 35 weeks 4 days IMPRESSION: 1. A single living intrauterine gestation redemonstrated. 2. No findings to suggest placenta abruption. Labs 10/05/23 12:30 Labs: Laboratory Results - last 24 hr 10/05/23 12:30 WBC 10.3 RBC 3.54 L Hgb 9.5 L Hct 28.0 L MCV 79.0 L MCH 26.9 MCHC 34.1 RDW 14.1 Plt Count 359 Neut % (Auto) 78.2 H Lymph % (Auto) 16.7 L [place] % (Auto) 4.3 Eos % (Auto) 0.5 L Baso % (Auto) 0.3 Neut # (Auto) 8000 H Lymph # (Auto) 1700 [place] # (Auto) 400 Eos # (Auto) 0 Baso # (Auto) 0 Evaluation Evaluation Baseline heart rate: 140 Variability: Moderate (11-25) monitor accelerations: Present Monitor Decelerations: Absent Contraction Frequency (minutes): 2 Uterine Contraction Intensity: Mild Category of Tracing: Reactive Status: Category l Cervical dilation (cm): 0 Cervical effacement (%): 20 station: -3 Comments: Fibrinogen 464 Ferritin 4 Diagnosis, Plan/Disposition Final Diagnosis (1) Traumatic injury during in third trimester: Status: Acute (2) Anemia affecting in third trimester: Status: Acute (3) Maternal iron deficiency anemia complicating in third trimester: Status: Acute (4) 35 weeks gestation of : Status: Acute Plan/Disposition Plan: 23yo at 35.4w s/p fall, trauma in - No signs of injury/abruption. Fibrinogen 464, CBC stable, benign ultrasound as above - Cervix closed not in labor, she has been having mild contractions in third trimester prior to today's fall - Anemia, iron deficiency in . Ferritin 4. She was given iron infusion today with 1L LR, tolerated well. - Discharge to home, labor, bleeding, [facility] precautions. Follow up as scheduled with primary OB OB Disposition: home
[2023-10-05 13:24] LABS: Fibrinogen 464 mg/dL (238-498)
--- NOTE | 2023-10-05 13:34 | DI.US.S_ITS ---
PROCEDURE: US OB LIMITED INDICATIONS: Rule out abruption following fall OUTSIDE/PRIOR DATING DATA: Last menstrual period (LMP): 01/29/23. LMP-based estimated date of delivery (GUILLAUME): 11/05/2023. First dating scan (date and location): 06/20/2023. Estimated date of delivery (GUILLAUME) from first dating scan: 11/03/2019. TECHNIQUE: Real-time scanning was performed of the fetus, with image documentation and biometric measurements. Biophysical profile was also obtained. COMPARISON: [facility], , OB >= 14 WEEKS FETUS, 06/20/2023, 10:34. FINDINGS: General: A single living intrauterine gestation is present. Presentation: Vertex. Placenta: Placental position is anterior and appears normal. Lower placental margin and its relation with cervix are not visualized on this exam. Amniotic fluid index: 15.9 cm, normal range is 5-24 cm. Single deepest vertical pocket is 4.9cm. heart rate: 139 beats per minute. Maternal cervical canal: Not visualized biometrics: Not performed Clinically estimated gestational age: 35 weeks 4 days IMPRESSION: 1. A single living intrauterine gestation redemonstrated. 2. No findings to suggest placenta abruption. We strive to produce accurate, complete, and clear reports of imaging services. To assist us in improving patient care, this report was composed using standard report templates and voice recognition software. Therefore, it may contain abnormal punctuation, insertions and/or omissions. Occasional wrong-word or sound-alike substitutions may occur. Though we review the report and make efforts to correct it, we do recommend that the report be read carefully in proper context to recognize any text inaccuracies. Dictated by: Chandan Ledezma M.D. on 10/05/2023 at 16:32 Approved by: Chandan Ledezma M.D. on 10/05/2023 at 16:36
[2023-10-05] MEDS: IRON SUCROSE 200 MG in SODIUM CHLORIDE 0.9% 100 ML 220 MG IV (14:20)
[2023-10-05] MEDS: LACTATED RINGERS 1,000 ML 1000 ML IV (14:37)
[2023-10-05 16:10] LABS: Ferritin 4 ng/mL (6-137)
== END 2023-10-05 16:00 | disposition home or self-care (01) ==
PROVIDERS: Obstetrics & Gynecology; Admitting Provider Student in an Organized Health Care Education/Training Program; Referring Provider Student in an Organized Health Care Education/Training Program; Visit Provider Student in an Organized Health Care Education/Training Program
DX: O9A.213 Injury, poisoning and certain other consequences of external causes complicating pregnancy, third trimester (principal); O99.013 Anemia complicating pregnancy, third trimester; D50.9 Iron deficiency anemia, unspecified; W17.89XA Other fall from one level to another, initial encounter
CPT/HCPCS: 36415; 59025; 59050; 76815; 82728; 85025; 85384; 96360; G0378; G0379; J1756

== ENCOUNTER → 2023-10-11 21:16 | Outpatient (ROUT) | payer OTHER, SELFPAY ==
[2023-10-12 15:28] LABS: Strep Grp B PCR NEG for Grp B Strep
== END ==
PROVIDERS: Visit Provider Student in an Organized Health Care Education/Training Program
DX: Z34.83 Encounter for supervision of other normal pregnancy, third trimester (principal); Z3A.36 36 weeks gestation of pregnancy
CPT/HCPCS: 87653

== ENCOUNTER 2023-10-22 05:35 | Inpatient (IN) | payer OTHER, SELFPAY ==
[2023-10-22 08:52] LABS: Add Manual Diff / Slide Review NO; Basophils Absolute Auto 100 /uL (0-100); Basophils Percent Auto 0.7 % (0-2); Eosinophils Absolute Auto 0 /uL (0-450); Eosinophils Percent Auto 0.4 % (2-4); Hematocrit 31.3 % (36-46); Hemoglobin 10.2 g/dL (12.0-16.0); Lymphocytes Absolute Auto 1800 /uL (1100-4500); Lymphocytes Percent Auto 14.7 % (25-40); Mean Corpuscular HGB Conc 32.5 % (30-36); Mean Corpuscular Hemoglobin 25.3 PG (26-34); Mean Corpuscular Volume 78.1 fL (80-100); Monocytes Absolute Auto 400 /uL (0-900); Monocytes Percent Auto 3.5 % (3-14); Neutrophils Absolute Auto 9600 /uL (1500-7000); Neutrophils Percent Auto 80.7 % (50-75); Platelet Count 384 X10^3/uL (150-400); Red Blood Cell Count 4.01 X10^6/uL (4.0-5.2); Red Cell Distribution Width 15.6 % (11.6-14.8); White Blood Cell Count 11.9 X10^3/uL (4.5-11.0)
[2023-10-22] MEDS: LACTATED RINGERS 1,000 ML 100 ML IV ×2 (09:00→09:55)
--- NOTE | 2023-10-22 09:56 | PM.OBHP.1 ---
OB HPI Date/Time Date of admission: 10/22/23 Date Patient Seen: 10/22/23 Time Patient Seen: 09:57 History of Present Condition Chief complaint: OB : 3 Para: 1 Estimated Date of Delivery: 11/05/23 Estimated Gestational Age (weeks): 38+0 Narrative: Lynn Grady is a 23 year old presenting with regular uterine contractions and cervical dilation now 38+ 0 weeks gestational age. Course has been largely uneventful with solid early dating and appropriate milestones throughout. Patient did have an elevated [place] 1 hour GDM screen but her 3 hour GTT was normal at all determinations. GBS status is negative. Indications Other reason(s) for admission: Spontaneous labor History of Present care: good care Dating criteria: LMP confirmed by 1st trimester US Ultrasounds: normal 1st trimester US and normal mid trimester US Obstetrical complications: none Medical complications: none Preadmission Labs Blood type: B (+) positive -: Antibody screen: negative, GBS status: negative, HBsAG: negative, HIV: negative and RPR/VDLR: negative -: Chlamydia screen: not detected and Gonorrhea screen: not detected -: Rubella: immune and Varicella: immune HCT: 31.3 HCAB: negative PAP: Normal Quad screen: Normal 1 hr GTT: 147 3 hr GTT: 1 hr (153), 2 hr (144) and 3 hr (66) Fasting blood glucose: 93 Prior (ies) History: x 1 Evaluation Evaluation Baseline heart rate: 145 Variability: Moderate (11-25) monitor accelerations: Present Monitor Decelerations: Absent Contraction Frequency (minutes): 3 Uterine Contraction Intensity: Moderate Category of Tracing: Reactive Status: Category l Dilation (cm): 6 Effacement (%): 90 Dilation: >/=5 cm Effacement: >/=80% station: -2 Position of cervix: mid Consistency: soft Jensen score: 10 [facility] Medical History (Updated 10/11/23 @ 14:47 by Kerri Mariscal DO) Penicillin allergy Vaginal delivery Chlamydia Acne inversa Migraines (~2005) Surgical History (Updated 03/22/23 @ 13:12 by Anali Cast RN) No pertinent past surgical history Family History Mother No problems noted. Father Sarcoidosis of lung Grandmother No problems noted. Grandfather Family history unknown Grandmother Sarcoidosis of lung Grandfather Hypertension History of heart disease Social History marital status: number of children: 1 household members: spouse and children lives independently: Yes caregiver/support person: Yes housing[facility] pets and animals: No education level: college (Associate's degree) occupational status: employed current occupational exposures/hazards: No special aly needs: No travel history: recent (domestic only) seatbelt use: always water heater temp set < 120 deg: Yes working smoke detector in home: Yes fire extinguisher in home: Yes carbon monox detector in home: Yes firearms in home: No do you feel safe at home: Yes Smoking Status: Never smoker second hand exposure: No alcohol intake: former (Not while /, not much otherwise) substance use type: marijuana (not while /) during the past year weight has: other (daughter less than 1 year old, currently ~10 lb over pre-baby wt) well-balanced diet: daily or most days daily servings fruits/ve-1 caffeine: No Type(s) of exercise: none frequency: does not exercise duration: 30-45 minutes/day Meds Home Medications and Allergies Home Medications Medication Instructions Recorded Confirmed Type prenat.vits,jan,kmu-ywoz-afxty 1 tab PO DAILY 11/17/21 10/11/23 History ondansetron 4 mg disintegrating 4 mg PO Q6H PRN nausea and 05/08/23 10/11/23 Rx tablet vomiting #20 tabs valacyclovir 500 mg tablet 500 mg PO BID #30 tabs 09/27/23 10/11/23 Rx (Valtrex) Allergies Allergy/AdvReac Type Severity Reaction Status Date / Time Penicillins Allergy Intermediate Difficulty Verified 10/11/23 13:40 Breathing Review of Systems Review of Systems Narrative: Problem-specific ROS positives included in HPI OB Exam Vital signs Blood Pressure: 130/77 Pulse Rate: 100 Temperature: 96.4 F HENMT Head: normal to inspection, normocephalic and atraumatic Eyes General: appearance normal, both eyes and all related structures Resp Effort & Inspection: normal respiratory effort and able to speak in complete sentences Auscultation: clear to auscultation bilaterally Cardio Rate: regular rate Rhythm: regular rhythm Heart Sounds: S1 normal, S2 normal and no murmurs Extremities Lower extremity: Yes normal to inspection GI Inspection: normal to inspection Palpation: Yes soft and Yes no hepatosplenomegaly Uterus Location (Fundal Height): 37 Presentation: vertex Estimated Weight (lbs): 7 Objective Labs 10/22/23 08:45 Labs: Laboratory Results - last 24 hr 10/22/23 08:45 WBC 11.9 H RBC 4.01 Hgb 10.2 L Hct 31.3 L MCV 78.1 L MCH 25.3 L MCHC 32.5 RDW 15.6 H Plt Count 384 Neut % (Auto) 80.7 H Lymph % (Auto) 14.7 L [place] % (Auto) 3.5 Eos % (Auto) 0.4 L Baso % (Auto) 0.7 Neut # (Auto) 9600 H Lymph # (Auto) 1800 [place] # (Auto) 400 Eos # (Auto) 0 Baso # (Auto) 100 Assessment and Plan Assessment and Plan Assessment and Plan narrative: ASSESSMENT 1. Intrauterine , 38+ 0 weeks gestational age 2. Early active phase labor 3. GBS negative status PLAN 1. Admit for labor and delivery 2. Okay for [place] 3. See admission orders
[2023-10-22 10:20] VITALS: BP 130/77; PULSE 100; TEMP 35.8
[2023-10-22 10:50] VITALS: BP 129/68
--- NOTE | 2023-10-22 13:59 | PM.AN.REGBLK ---
Regional Block Pre-procedure Procedure: Continuous Lumbar Epidural for L&D Attending OB provider: Tono Choudhury PMH/ROS narrative: 23yo female 38wk 0d with no medical history. First uneventful with spontaneous vaginal delivery. Hx: No personal or family history of anesthesia problems. PSH/Anesthesia history narrative: None/no family history of reaction to anesthesia. Exam narrative: Labor epidural inserted under sterile conditions, 1% Lidocaine used for skin wheal, loss of resistance with air + saline, test dose without reaction, initial dose 2% Lidocaine 7ml. Patient tolerated procedure. ASA Class: II Labs: Hct 31.3 % (36-46) L 10/22/23 08:45 Plt Count 384 X10^3/uL (150-400) 10/22/23 08:45 Medications: Current Medications Generic Name Dose Route Start Last Admin Trade Name Freq PRN Reason Stop Dose Admin Calcium Carbonate 1,000 mg 10/22/23 06:53 Calcium Carbonate 500 Mg Tab PO Q4HR PRN Dyspepsia Carboprost Tromethamine 250 mcg 10/22/23 06:53 Carboprost 250 Mcg/Ml Ampul IM Q90M PRN Bleeding Diphenhydramine HCl 25 mg 10/22/23 13:41 Diphenhydramine 50 Mg/Ml Vial IV Q10M PRN Pruritis Fentanyl 100 mcg 10/22/23 06:53 Fentanyl 100 Mcg/2 Ml Inj IV Q1H PRN Pain, Severe (7-10) Oxytocin/Lactated Ringer's 30 unit in 500 mls @ 200 mls/hr 10/22/23 06:53 Oxytocin Premix IV CONT PRN Bleeding Protocol Tranexamic Acid 1,000 mg/ 100 mls @ 200 mls/hr 10/22/23 06:53 Sodium Chloride IV NOW PRN Bleeding Lactated Ringer's 1,000 mls @ 100 mls/hr 10/22/23 07:00 10/22/23 09:55 Lactated Ringers IV 100 mls/hr CONT EUGENE Administration FENT 2MCG/ML BUPIV 0.125% EPI 200 mcg in 100 mls @ 6 mls/hr 10/22/23 09:56 Fentanyl/Bupiv/Ns 2mcg/Ml - 0.125% EPIDURAL CONT EUGENE Lidocaine HCl 20 ml 10/22/23 06:53 Lidocaine 1% 20 Ml INJ INTRA-OP PRN Post Delivery Methylergonovine Maleate 0.2 mg 10/22/23 06:53 Methylergonovine 0.2 Mg Tablet PO Q6HR PRN Heavy Bleeding Methylergonovine Maleate 0.2 mg 10/22/23 06:53 Methylergonovine 0.2 Mg/Ml Vial IM NOW PRN Bleeding Misoprostol 800 mcg 10/22/23 06:53 Misoprostol 200 Mcg Tablet NJ NOW PRN Bleeding Misoprostol 400 mcg 10/22/23 06:53 Misoprostol 200 Mcg Tablet SL NOW PRN Bleeding Nalbuphine HCl 2.5 mg 10/22/23 13:41 Nalbuphine 20 Mg/Ml Ampul IV Q10M PRN Pruritis Naloxone HCl 0.2 mg 10/22/23 06:53 Naloxone 0.4 Mg/Ml Vial IV Q2MIN PRN Opiate Reversal Naloxone HCl 0.4 mg 10/22/23 13:41 Naloxone 0.4 Mg/Ml Vial IV Q2MIN PRN Opiate Reversal Ondansetron HCl 4 mg 10/22/23 06:53 Ondansetron 4 Mg/2 Ml Inj IV Q4HR PRN Nausea And Vomiting Oxytocin 10 unit 10/22/23 06:53 Oxytocin 10 Unit/Ml Vial IM NOW PRN Bleeding Allergies: Allergies Allergy/AdvReac Type Severity Reaction Status Date / Time Penicillins Allergy Intermediate Difficulty Verified 10/11/23 13:40 Breathing Procedure Insertion date: 10/22/23 Insertion time: 09:33 Prep/Local: betadine x3 and 1% lidocaine Interspace: L3-L4 Patient position: sitting Needle: 18 gauge Hustead Loss of resistance with: saline ABIMAEL at (cm): 7 Catheter placed at SKIN (cm): 14 Catheter in SPACE (cm): 7 Insertion: No CSF, No Blood, No Paresthesia with insertion, No Paresthesia with injection and No Test dose reaction Initial Medications TEST DOSE time: 09:34 TEST DOSE: 1.5% lidocaine with epinephrine 1:200k (mL): 3 BOLUS DOSE time: 09:36 BOLUS DOSE (mL): 7 BOLUS DOSE med: other (2% Lidocaine 7mL) Infusion INFUSION: 0.125% bupivacaine and with fentanyl 2 mcg/mL Initial rate (mL/hr): 6 Subsequent interventions: Bolus 2% Lidocaine 2mL, 0.5% Bupivacaine 3mL, 4mcg Precedex @1710. New rate 8ml/hr Post-procedure Anesthesia time START: 09:10 Anesthesia time END: 18:04 Post-procedure Anesthesia Assessment: Yes CV function: HR/BP stable, Yes Resp function: RR/sat/airway adequate, Yes Post-op hydration adequate, Yes Pain control adequate, Yes Nausea & vomiting absent, Yes Temperature > 36 C and Yes Mental status appropriate
[2023-10-22] MEDS: FENT 2MCG/ML BUPIV 0.125% EPI 200 MCG/100 ML PLAST..BAG 6 MCG EPIDURAL (16:42)
--- NOTE | 2023-10-22 18:22 | PM.OBPRVD ---
Labor & Delivery Delivery date: 10/22/23 Intrapartal Events: None Cervical ripening method: none Induction method: none Delivery monitor: external FHT and external uterine Route of delivery: Episiotomy description: None L&D Laceration Description: Perineal - 1st Degree (No closure required) Estimated blood loss (mL): 150 Anesthesia Type: Epidural Complications: None Narrative: Following a very brief 2nd stage, the patient delivered spontaneously over an intact perineum a robust viable male . No shoulder dystocia or cord entanglement was noted at the time of delivery. Skin to skin contact was initiated immediately and delayed cord clamping performed. Once the umbilical cord was doubly clamped and cut, a specimen of cord blood was obtained for routine testing. The placenta was easily delivered with gentle cord traction and suprapubic countertraction. Inspection showed the umbilical cord to be inserting marginally with 3 vessels. The placenta itself was intact. Intravenous Pitocin was initiated immediately at the time of placenta delivery and post delivery bleeding was minimal. Inspection of the perineum showed very superficial first-degree perineal laceration in the midline which should not require closure for hemostasis. Sponge needle count was correct at the end of the delivery process which was well tolerated by both and mother. [place] Baby 1: gender: Male Presentation: vertex Position: Left Occiput Anterior Placenta delivery description: Spontaneous Cord Vessel Description: 3 Vessels score (1 min): 8 score (5 min): 9 weight: 7 lb 10.013 oz Plan for aftercare: Routine care
[2023-10-22] MEDS: DOCUSATE 100 MG CAPSULE PO (21:02)
[2023-10-22] MEDS: ACETAMINOPHEN 325 MG TABLET 650 MG PO (21:02)
[2023-10-22] MEDS: IBUPROFEN 600 MG TABLET PO (21:02)
[2023-10-23] MEDS: IBUPROFEN 600 MG TABLET PO ×2 (03:12→09:02)
[2023-10-23] MEDS: ACETAMINOPHEN 325 MG TABLET 650 MG PO ×2 (03:13→09:02)
[2023-10-23] MEDS: OXYCODONE/ACETAMINOPHEN 5/325 TABLET 1 TAB PO (03:26)
[2023-10-23 06:14] LABS: Add Manual Diff / Slide Review NO; Basophils Absolute Auto 0 /uL (0-100); Basophils Percent Auto 0.2 % (0-2); Eosinophils Absolute Auto 100 /uL (0-450); Eosinophils Percent Auto 0.6 % (2-4); Hematocrit 26.7 % (36-46); Hemoglobin 8.7 g/dL (12.0-16.0); Lymphocytes Absolute Auto 2600 /uL (1100-4500); Lymphocytes Percent Auto 20.2 % (25-40); Mean Corpuscular HGB Conc 32.7 % (30-36); Mean Corpuscular Hemoglobin 25.6 PG (26-34); Mean Corpuscular Volume 78.1 fL (80-100); Monocytes Absolute Auto 700 /uL (0-900); Monocytes Percent Auto 5.8 % (3-14); Neutrophils Absolute Auto 9200 /uL (1500-7000); Neutrophils Percent Auto 73.2 % (50-75); Platelet Count 297 X10^3/uL (150-400); Red Blood Cell Count 3.42 X10^6/uL (4.0-5.2); Red Cell Distribution Width 15.6 % (11.6-14.8); White Blood Cell Count 12.6 X10^3/uL (4.5-11.0)
[2023-10-23] MEDS: DOCUSATE 100 MG CAPSULE PO (08:57)
[2023-10-23] MEDS: valACYclovir 500 MG TABLET PO (08:58)
--- NOTE | 2023-10-23 10:13 | PM.OBDS.1 ---
Discharge Providers Provider Date of admission: 10/22/23 05:35 Discharge Date: 10/23/23 Primary care physician: Braulio MONTEJO Provider Consults: 10/22/23 06:53 Consult to Anesthesiology Urgent Comment: Consulting Provider: Anesthesiologist Reason for consultation: Epidural 10/23/23 18:20 Consult to Infantryman Routine Comment: Discharge provider: Tono Choudhury MD Summary Hospital Course Date Patient Seen: 10/23/23 Time Patient Seen: 10:14 Diagnoses: Intrauterine gestation, 38+ 0 weeks gestational age, delivered by spontaneous vaginal Hospital Course: Lynn was admitted in early active phase labor early on the morning of 10/22/2024 and later that day delivered a viable male Apgars of 8/9, weight 3459 g (7 lb 10 oz). Since delivery both mother and baby have done extremely well with the mother experiencing prompt return of bowel and bladder function, she is ambulating independently, tolerating a regular diet, and her pain is well controlled with oral pain medications. Patient will be discharged at this time to home in an afebrile normotensive condition after counseling regarding precautionary symptoms, limitations activity, medications, and plans for follow-up which will be in 6 weeks. Medications at discharge will include resumption of preadmission medications and she will be using [id number] Tylenol and/or ibuprofen as needed for pain control following delivery. Peripartum Data Infant Delivery Method: Natural Vaginal Laceration Description: Perineal - 1st Degree Episiotomy description: None Procedures: Spontaneous vaginal complications: none 1: Gender: Male Disposition of : home Status at Discharge Cognitive/behavioral status at discharge: oriented Functional status at discharge: independent ambulation Overall status at discharge: patient is progressing back to baseline Time Spent with Patient Time attestation: Total time spent providing and/or coordinating discharge services: Time spent: Less than 30 minutes Objective Labs 10/23/23 05:56 Labs: Laboratory Results - last 24 hr 10/22/23 10/23/23 08:45 05:56 WBC 12.6 H RBC 3.42 L Hgb 8.7 L Hct 26.7 L MCV 78.1 L MCH 25.6 L MCHC 32.7 RDW 15.6 H Plt Count 297 Neut % (Auto) 73.2 Lymph % (Auto) 20.2 L [place] % (Auto) 5.8 Eos % (Auto) 0.6 L Baso % (Auto) 0.2 Neut # (Auto) 9200 H Lymph # (Auto) 2600 [place] # (Auto) 700 Eos # (Auto) 100 Baso # (Auto) 0 Blood Type B Positive Antibody Screen Negative Exam HENMT Head: normal to inspection, normocephalic and atraumatic Eyes General: appearance normal, both eyes and all related structures Resp Effort & Inspection: normal respiratory effort and able to speak in complete sentences Auscultation: clear to auscultation bilaterally Cardio Rate: regular rate Rhythm: regular rhythm Heart Sounds: S1 normal, S2 normal and no murmurs GI Inspection: normal to inspection Palpation: soft and no hepatosplenomegaly Uterus Location (Fundal Height): 18 (Nontender, firm) Extrem Right lower extremity: normal to inspection Discharge Plan Discharge Plan Patient Disposition: Home Provider Discharge Comment: Please review the written instructions you received when you were discharged from the hospital. Your follow-up appointment will be scheduled for 6 weeks after delivery and we look forward to seeing you then. If however in the meanwhile you have any issues, concerns, or questions, please contact our office at [phone], or via the patient. Discharge orders & Medications Prescriptions: Continued valacyclovir [Valtrex] 500 mg tablet 500 mg PO BID Qty: 30 2RF prenat.vits,jan,kjg-mtyw-[id number] Tablet 1 tab PO DAILY Follow up/Referrals: Braulio Carlson [Primary Care Provider] - Discharge Health Status Multidrug resistant organism: No MDRO Diet/Activity/Treatments Diet: Diet as Tolerated Activity: As tolerated Other treatments: [id number] Tylenol and/or ibuprofen may pain. Iqry-ikk-[id number] stool softeners and/or MiraLax may be as needed constipation Skin/Wound/Dressing Care Report to your healthcare provider any signs of infection, such as:: chills, fever, increased pain and unusual drainage Dressing: N/A Visit Report/Discharge Packet Instructions: DI for Labor and Delivery, Vaginal , DI for and Nipple Soreness Stand Alone Forms: Discharge: Care Discharge Data Primary Care Provider: Braulio Carlson Attending Provider: Tono Choudhury Admit Date/Time: 10/22/23 05:35
[2023-10-23] MEDS: OXYCODONE IR 5 MG TABLET PO (13:03)
== END 2023-10-23 15:05 | disposition home or self-care (01) | DRG 807 ==
PROVIDERS: Admitting Provider Obstetrics & Gynecology; Referring Provider Obstetrics & Gynecology; Visit Provider Obstetrics & Gynecology
DX: O80 Encounter for full-term uncomplicated delivery (principal); Z37.0 Single live birth; Z3A.38 38 weeks gestation of pregnancy
CPT/HCPCS: 36415; 59050; 59400; 59409; 85025; 86850; 86900; 86901; G0378; G0379